=== PATIENT | female | born 1985 | race Caucasian/White ===

== ENCOUNTER 2020-10-07 18:55 | Emergency (ER) | payer MEDICAID ==
[~2020-10-07] VITALS: Ht 170.2 cm; Wt 84.1 kg
[2020-10-07 19:18] VITALS: BP 147/88
[2020-10-07] MEDS ORDERED: ondansetron 4mg rapidly disintigrating tab PO ONE (19:45)
[2020-10-07] MEDS ORDERED: ONDA4TAB6 PO (19:55)
--- NOTE | 2020-10-07 20:42 | NUR ---
Pt was able to tolerate 500ml of water. Pt denies nausea at this time. Pt denies pain at this time. Pt verbalized understanding of DC orders.
== END 2020-10-07 20:45 | disposition home or self-care (01) ==
LOC: ER 18:55
DX: F10.129 Alcohol abuse with intoxication, unspecified (principal); R11.2 Nausea with vomiting, unspecified; Y90.9 Presence of alcohol in blood, level not specified
CPT/HCPCS: 99283

== ENCOUNTER 2022-03-14 16:15 | Emergency (ER) | payer MEDICAID ==
[~2022-03-14] VITALS: Ht 170.2 cm; Wt 82.9 kg
[~2022-03-14 16:15] MED LIST: ONDA4TAB6 PO
[2022-03-14 16:17] VITALS: BP 142/72
== END 2022-03-14 17:39 | disposition home or self-care (01) ==
LOC: ER 16:16
DX: S92.534A Nondisplaced fracture of distal phalanx of right lesser toe(s), initial encounter for closed fracture (principal); J45.909 Unspecified asthma, uncomplicated; Z90.49 Acquired absence of other specified parts of digestive tract; F12.90 Cannabis use, unspecified, uncomplicated; Z79.899 Other long term (current) drug therapy; W22.8XXA Striking against or struck by other objects, initial encounter; Y93.89 Activity, other specified; Y92.89 Other specified places as the place of occurrence of the external cause; Y99.8 Other external cause status
CPT/HCPCS: 73660; 99283

== ENCOUNTER 2022-10-12 09:20 | Emergency (ER) | payer BC, MEDICAID ==
[~2022-10-12] VITALS: Ht 170.2 cm; Wt 75.0 kg
[2022-10-12 09:37] VITALS: BP 168/72
[2022-10-12] MEDS ORDERED: normal saline 1000ML IV soln IVB ONE (09:45)
[2022-10-12] MEDS ORDERED: ondansetron/PF 4mg/2ml inj IV ONE (09:45)
[2022-10-12] MEDS ORDERED: famotidine/PF 10 mg/ml inj IV ONE (09:45)
[2022-10-12 10:33] LABS: BASOPHILS % (AUTO) 0.4 % (0-1); EOSINOPHILS # (AUTO) 0.1 X10'3 (0-0.9); HEMATOCRIT 35.3 % (35.0-45.0); HEMOGLOBIN 11.5 g/dl (12.0-16.0); LYMPHOCYTES # (AUTO) 1.9 X10'3 (1.1-4.8); LYMPHOCYTES % (AUTO) 30.6 % (21-51); MEAN CORPUSCULAR HEMOGLOBIN 28.1 PG (27.0-31.0); MEAN CORPUSCULAR HGB CONC 32.6 g/dL (33.0-36.5); MONOCYTES # (AUTO) 0.4 X10'3 (0-0.9); NEUTROPHILS # (AUTO) 3.8 X10'3 (1.8-7.7); PLATELET COUNT 300 X10'3 (140-440); WHITE BLOOD COUNT 6.4 X10'3 (4.5-11.0)
[2022-10-12 10:41] LABS: ALANINE AMINOTRANSFERASE 26 U/L (12-78); ALBUMIN 3.9 G/DL (3.4-5.0); ALBUMIN/GLOBULIN RATIO 1.3 (1.1-1.5); ALKALINE PHOSPHATASE 51 IU/L (46-116); ANION GAP 9 (8-16); ASPARTATE AMINO TRANSFERASE 26 U/L (10-37); BILIRUBIN,TOTAL 0.4 MG/DL (0.1-1.0); BLOOD UREA NITROGEN 9 MG/DL (7-18); BUN/CREATININE RATIO 11.8 (6.6-38.0); CALCIUM 8.5 MG/DL (8.5-10.1); CHLORIDE 102 MMOL/L (99-107); CREATININE 0.76 MG/DL (0.40-0.90); GLUCOSE 90 MG/DL (70-104); LIPASE < 50 U/L (73-393); POTASSIUM 3.9 MMOL/L (3.5-5.1); SODIUM 139 MMOL/L (135-145); TOTAL CARBON DIOXIDE 28.5 MMOL/L (24-32); TOTAL PROTEIN 6.8 G/DL (6.4-8.2); eGFR 87 ML/MIN
[2022-10-12] MEDS ORDERED: ONDA4TAB12 PO (10:59)
[2022-10-12] MEDS ORDERED: sucralfate 1 gm tablet PO ONE (11:30)
[2022-10-12] MEDS ORDERED: LIDOcaine Viscous 15ml cup MM ONE (11:30)
[2022-10-12] MEDS ORDERED: mag hydrox/Alum hydrox/simeth 30ml oral suspension PO ONE (11:30)
--- NOTE | 2022-10-12 12:23 | NUR ---
I agree with Gosia AGUILAR's general assessment.
== END 2022-10-12 12:39 | disposition home or self-care (01) ==
LOC: ER 09:21
DX: R11.2 Nausea with vomiting, unspecified (principal); R19.7 Diarrhea, unspecified; R10.9 Unspecified abdominal pain; F12.10 Cannabis abuse, uncomplicated; J45.909 Unspecified asthma, uncomplicated; Z87.81 Personal history of (healed) traumatic fracture; Z90.49 Acquired absence of other specified parts of digestive tract
CPT/HCPCS: 36415; 80053; 83690; 85025; 96361; 96374; 96375; 99284; J2405; J3490; J7030

== ENCOUNTER 2022-12-29 13:53 | Emergency (ER) | payer BC, MEDICAID ==
[~2022-12-29] VITALS: Ht 170.2 cm; Wt 64.2 kg
[~2022-12-29 13:53] MED LIST changes: +ONDA4TAB12 PO
[2022-12-29 15:41] LABS: BASOPHILS % (AUTO) 0.4 % (0-1); EOSINOPHILS # (AUTO) 0.2 X10'3 (0-0.9); EOSINOPHILS % (AUTO) 2.4 % (0-6); HEMATOCRIT 32.3 % (35.0-45.0); HEMOGLOBIN 10.6 g/dl (12.0-16.0); LYMPHOCYTES # (AUTO) 1.4 X10'3 (1.1-4.8); LYMPHOCYTES % (AUTO) 21.3 % (21-51); MEAN CORPUSCULAR HEMOGLOBIN 28.7 PG (27.0-31.0); MEAN CORPUSCULAR HGB CONC 32.7 g/dL (33.0-36.5); MEAN CORPUSCULAR VOLUME 87.9 FL (78-98); MEAN PLATELET VOLUME 8.1 FL (7.4-10.4); MONOCYTES # (AUTO) 0.5 X10'3 (0-0.9); MONOCYTES % (AUTO) 7.6 % (2-12); NEUTROPHILS # (AUTO) 4.5 X10'3 (1.8-7.7); NEUTROPHILS % (AUTO) 68.3 % (42-75); PLATELET COUNT 256 X10'3 (140-440); RED BLOOD COUNT 3.68 X10'6 (4.20-5.60); WHITE BLOOD COUNT 6.5 X10'3 (4.5-11.0)
[2022-12-29 15:49] LABS: APTT 25 SECONDS (22-32)
[2022-12-29 15:50] LABS: ALANINE AMINOTRANSFERASE 19 U/L (12-78); ALBUMIN 3.7 G/DL (3.4-5.0); ALBUMIN/GLOBULIN RATIO 1.4 (1.1-1.5); ALKALINE PHOSPHATASE 43 IU/L (46-116); ANION GAP 7 (8-16); ASPARTATE AMINO TRANSFERASE 14 U/L (10-37); BILIRUBIN,TOTAL 0.2 MG/DL (0.1-1.0); BLOOD UREA NITROGEN 8 MG/DL (7-18); BUN/CREATININE RATIO 11.9 (10.0-20.0); CALCIUM 8.9 MG/DL (8.5-10.1); CHLORIDE 106 MMOL/L (99-107); CREATININE 0.67 MG/DL (0.40-0.90); GLUCOSE 80 MG/DL (70-104); SODIUM 139 MMOL/L (135-145); TOTAL CARBON DIOXIDE 26.1 MMOL/L (24-32); TOTAL PROTEIN 6.3 G/DL (6.4-8.2); eGFR > 90 ML/MIN
[2022-12-29 16:13] LABS: LIPASE 85 U/L (73-393); MAGNESIUM 2.1 MG/DL (1.5-2.4)
[2022-12-29 16:15] LABS: BETA HCG,QUANTITATIVE 2285 mIU/ml
[2022-12-29 20:01] LABS: URINE HCG POSITIVE (NEG)
[2022-12-29 20:02] LABS: CLARITY,URINE CLOUDY (Clear); COLOR,URINE AMBER (Yellow); GLUCOSE, URINE 100 mg/dl (Neg); KETONES,URINE 15 mg/dl (Neg); LEUKOCYTE ESTERASE ,URINE NEGATIVE (Neg); OCCULT BLOOD,URINE LARGE (Neg); PROTEIN,URINE 100 mg/dl (Neg); UROBILINOGEN,URINE 0.2 E.U/dL (0.2-1.0)
[2022-12-29 20:06] LABS: UA COLLECTION TYPE CLN CATCH MIDSTREAM
[2022-12-29 20:11] LABS: NITRITES, URINE NEGATIVE (Neg)
[2022-12-29 20:12] LABS: RBC,URINE TNTC /HPF (0-2)
[2022-12-29 20:14] LABS: SQUAMOUS EPITHELIAL CELL,UR MANY /LPF (FEW); WBC,URINE 50-100 /HPF (0-4)
[2022-12-29 20:15] LABS: BACTERIA,URINE 1+ /HPF (Neg); MUCUS STRANDS FEW /LPF (Neg); TRANSITIONAL EPI CELLS,URINE MANY /HPF
--- NOTE | 2022-12-29 20:40 | NUR ---
US at bedside
[2022-12-29] MEDS ORDERED: acetaminophen 325mg tablet PO ONE (21:30)
[2022-12-29 22:14] VITALS: BP 130/70
== END 2022-12-29 22:13 | disposition home or self-care (01) ==
LOC: ER 13:54
DX: O20.9 Hemorrhage in early pregnancy, unspecified (principal); O99.011 Anemia complicating pregnancy, first trimester; J45.909 Unspecified asthma, uncomplicated; F12.90 Cannabis use, unspecified, uncomplicated; Z3A.08 8 weeks gestation of pregnancy; Z72.89 Other problems related to lifestyle; Z90.49 Acquired absence of other specified parts of digestive tract; Z79.899 Other long term (current) drug therapy
CPT/HCPCS: 36415; 76801; 76830; 80053; 81001; 81025; 83690; 83735; 84702; 85025; 85610; 85730; 86870; 86880; 86885; 86900; 86901; 99284

== ENCOUNTER 2023-03-21 11:07 | Emergency (ER) | payer BC, MEDICAID ==
[~2023-03-21] VITALS: Ht 170.2 cm; Wt 71.8 kg
[2023-03-21] MEDS ORDERED: ipratropium/albuterol 3ml nebule NEB ONE (11:25)
[2023-03-21] MEDS ORDERED: normal saline 1000ML IV soln IVB ONE (11:25)
[2023-03-21] MEDS ORDERED: methylPREDNISolone sod succ 125mg/2ml vial IV ONE (11:30)
--- NOTE | 2023-03-21 12:44 | NUR ---
PT AMBULATED TO ROOM 15 FROM ROOM 17 WITH INCREASED SOB. 02 2L/MIN NC APPLIED FOR SOB AND RR 26
[2023-03-21] MEDS ORDERED: albuterol 2.5 MG/3 ML nebule NEB ONE (13:30)
[2023-03-21 14:17] LABS: D-DIMER < 0.19 MG/L FEU (0-0.50)
--- NOTE | 2023-03-21 14:17 | NUR ---
LUNGS DIM LEFT UPPER LOBE. 02 SAT 96% O 2L/MIN NC. RT AT BEDSIDE.
[2023-03-21 14:19] LABS: ALANINE AMINOTRANSFERASE 27 U/L (12-78); ALBUMIN/GLOBULIN RATIO 1.4 (1.1-1.5); ALKALINE PHOSPHATASE 49 IU/L (46-116); ANION GAP 11 (8-16); ASPARTATE AMINO TRANSFERASE 20 U/L (10-37); BILIRUBIN,TOTAL 0.6 MG/DL (0.1-1.0); BLOOD UREA NITROGEN 8 MG/DL (7-18); BUN/CREATININE RATIO 10.5 (10.0-20.0); CALCIUM 9.1 MG/DL (8.5-10.1); CHLORIDE 102 MMOL/L (99-107); CREATININE 0.76 MG/DL (0.40-0.90); GLUCOSE 94 MG/DL (70-104); POTASSIUM 3.9 MMOL/L (3.5-5.1); SODIUM 136 MMOL/L (135-145); TOTAL CARBON DIOXIDE 23.1 MMOL/L (24-32); TOTAL PROTEIN 6.9 G/DL (6.4-8.2); eGFR 86 ML/MIN
[2023-03-21 14:52] LABS: BASOPHILS % (AUTO) 0.3 % (0-1); EOSINOPHILS # (AUTO) 0.3 X10'3 (0-0.9); EOSINOPHILS % (AUTO) 4.9 % (0-6); HEMATOCRIT 38.5 % (35.0-45.0); HEMOGLOBIN 12.8 g/dl (12.0-16.0); LYMPHOCYTES # (AUTO) 1.3 X10'3 (1.1-4.8); LYMPHOCYTES % (AUTO) 18.6 % (21-51); MEAN CORPUSCULAR HEMOGLOBIN 30.9 PG (27.0-31.0); MEAN CORPUSCULAR HGB CONC 33.2 g/dL (33.0-36.5); MEAN CORPUSCULAR VOLUME 93.1 FL (78-98); MONOCYTES # (AUTO) 0.6 X10'3 (0-0.9); MONOCYTES % (AUTO) 8.2 % (2-12); NEUTROPHILS # (AUTO) 4.7 X10'3 (1.8-7.7); PLATELET COUNT 238 X10'3 (140-440); RED BLOOD COUNT 4.14 X10'6 (4.20-5.60); RED CELL DISTRIBUTION WIDTH 14.5 % (11.5-14.5); WHITE BLOOD COUNT 6.9 X10'3 (4.5-11.0)
[2023-03-21] MEDS ORDERED: normal saline 1000ml 1,000 ML IV ONE (15:40)
[2023-03-21] MEDS ORDERED: PRED20TA PO (15:49)
[2023-03-21] MEDS ORDERED: ALBU8HFA PO (15:49)
[2023-03-21] MEDS ORDERED: AZIT-164 PO (15:49)
[2023-03-21 16:43] VITALS: BP 134/81
[2023-03-21] MEDS ORDERED: azithromycin 250mg tablet PO ONE (17:00)
[2023-03-21] MEDS ORDERED: predniSONE 20 mg tablet PO ONE (17:00)
--- NOTE | 2023-03-21 17:00 | NUR ---
PT AMBULATED IN HALLWAY, TOLERATED WELL. 02 SATS 95% ON RA, WITH SLIGHT SOB.
== END 2023-03-21 17:29 | disposition home or self-care (01) ==
LOC: ER 11:08
DX: J45.901 Unspecified asthma with (acute) exacerbation (principal)
CPT/HCPCS: 36415; 71045; 80053; 84702; 85025; 85379; 93005; 96361; 96374; 99285; J2930; J7030; J7512; 94640; 94760; A4615

== ENCOUNTER 2023-04-07 11:22 | Emergency (ER) | payer MEDICAID ==
[~2023-04-07] VITALS: Ht 170.2 cm; Wt 80.0 kg
[~2023-04-07 11:22] MED LIST changes: +ALBU8HFA PO; +AZIT-164 PO
[2023-04-07 13:28] VITALS: BP 117/62
[2023-04-07 15:23] LABS: BASOPHILS % (AUTO) 0.5 % (0-1); EOSINOPHILS # (AUTO) 0.2 X10'3 (0-0.9); EOSINOPHILS % (AUTO) 2.3 % (0-6); HEMATOCRIT 33.2 % (35.0-45.0); HEMOGLOBIN 11.2 g/dl (12.0-16.0); LYMPHOCYTES # (AUTO) 1.7 X10'3 (1.1-4.8); LYMPHOCYTES % (AUTO) 26.3 % (21-51); MEAN CORPUSCULAR HEMOGLOBIN 31.2 PG (27.0-31.0); MEAN CORPUSCULAR HGB CONC 33.8 g/dL (33.0-36.5); MEAN CORPUSCULAR VOLUME 92.3 FL (78-98); MEAN PLATELET VOLUME 8.3 FL (7.4-10.4); MONOCYTES # (AUTO) 0.5 X10'3 (0-0.9); MONOCYTES % (AUTO) 6.9 % (2-12); NEUTROPHILS # (AUTO) 4.2 X10'3 (1.8-7.7); PLATELET COUNT 215 X10'3 (140-440); RED CELL DISTRIBUTION WIDTH 13.6 % (11.5-14.5); WHITE BLOOD COUNT 6.6 X10'3 (4.5-11.0)
[2023-04-07] MEDS ORDERED: acetaminophen 325mg tablet PO ONE (15:35)
[2023-04-07] MEDS ORDERED: traMADol 50MG tablet PO ONE (15:35)
[2023-04-07] MEDS ORDERED: ondansetron 4mg rapidly disintigrating tab PO ONE (15:35)
[2023-04-07 15:44] LABS: ALANINE AMINOTRANSFERASE 21 U/L (12-78); ALBUMIN 3.5 G/DL (3.4-5.0); ALBUMIN/GLOBULIN RATIO 1.5 (1.1-1.5); ALKALINE PHOSPHATASE 36 IU/L (46-116); ANION GAP 8 (8-16); ASPARTATE AMINO TRANSFERASE 14 U/L (10-37); BILIRUBIN,TOTAL 0.4 MG/DL (0.1-1.0); BLOOD UREA NITROGEN 5 MG/DL (7-18); BUN/CREATININE RATIO 7.6 (10.0-20.0); CALCIUM 8.7 MG/DL (8.5-10.1); CHLORIDE 104 MMOL/L (99-107); CREATININE 0.66 MG/DL (0.40-0.90); GLUCOSE 84 MG/DL (70-104); POTASSIUM 3.6 MMOL/L (3.5-5.1); SODIUM 135 MMOL/L (135-145); TOTAL CARBON DIOXIDE 22.6 MMOL/L (24-32); TOTAL PROTEIN 5.9 G/DL (6.4-8.2); eGFR > 90 ML/MIN
[2023-04-07 16:21] LABS: BETA HCG,QUANTITATIVE 54588 mIU/ml
== END 2023-04-07 15:52 | disposition home or self-care (01) ==
LOC: ER 11:22
DX: O26.893 Other specified pregnancy related conditions, third trimester (principal); O46.8X3 Other antepartum hemorrhage, third trimester; Z33.1 Pregnant state, incidental; Z3A.36 36 weeks gestation of pregnancy
CPT/HCPCS: 36415; 76801; 76817; 80053; 84702; 85025; 99284

== ENCOUNTER 2023-05-04 09:18 | Emergency (ER) | payer MEDICAID ==
[~2023-05-04] VITALS: Ht 170.2 cm; Wt 74.1 kg
[~2023-05-04 09:18] MED LIST changes: -ALBU8HFA PO; -AZIT-164 PO
[2023-05-04 09:24] VITALS: TEMP 98.5
[2023-05-04 09:48] LABS: BASOPHILS % (AUTO) 0.5 % (0-1); EOSINOPHILS # (AUTO) 0.1 X10'3 (0-0.9); EOSINOPHILS % (AUTO) 1.3 % (0-6); HEMATOCRIT 35.6 % (35.0-45.0); HEMOGLOBIN 11.9 g/dl (12.0-16.0); LYMPHOCYTES # (AUTO) 1.1 X10'3 (1.1-4.8); LYMPHOCYTES % (AUTO) 16.4 % (21-51); MEAN CORPUSCULAR HEMOGLOBIN 31.3 PG (27.0-31.0); MEAN CORPUSCULAR HGB CONC 33.4 g/dL (33.0-36.5); MEAN CORPUSCULAR VOLUME 93.7 FL (78-98); MEAN PLATELET VOLUME 8.2 FL (7.4-10.4); MONOCYTES # (AUTO) 0.4 X10'3 (0-0.9); MONOCYTES % (AUTO) 6.3 % (2-12); NEUTROPHILS # (AUTO) 5.2 X10'3 (1.8-7.7); NEUTROPHILS % (AUTO) 75.5 % (42-75); PLATELET COUNT 238 X10'3 (140-440); RED CELL DISTRIBUTION WIDTH 13.2 % (11.5-14.5); WHITE BLOOD COUNT 6.8 X10'3 (4.5-11.0)
[2023-05-04 10:00] LABS: ALANINE AMINOTRANSFERASE 41 U/L (12-78); ALBUMIN 3.5 G/DL (3.4-5.0); ALBUMIN/GLOBULIN RATIO 1.1 (1.1-1.5); ALKALINE PHOSPHATASE 38 IU/L (46-116); ANION GAP 13 (8-16); ASPARTATE AMINO TRANSFERASE 22 U/L (10-37); BILIRUBIN,TOTAL 0.4 MG/DL (0.1-1.0); BLOOD UREA NITROGEN 6 MG/DL (7-18); BUN/CREATININE RATIO 9.5 (10.0-20.0); CALCIUM 8.9 MG/DL (8.5-10.1); CHLORIDE 105 MMOL/L (99-107); CREATININE 0.63 MG/DL (0.40-0.90); GLUCOSE 88 MG/DL (70-104); LIPASE 60 U/L (73-393); POTASSIUM 4.1 MMOL/L (3.5-5.1); SODIUM 139 MMOL/L (135-145); TOTAL CARBON DIOXIDE 21.4 MMOL/L (24-32); TOTAL PROTEIN 6.6 G/DL (6.4-8.2); eGFR > 90 ML/MIN
[2023-05-04] MEDS ORDERED: normal saline 1000ml 1,000 ML IV ONE (10:05)
[2023-05-04 10:30] LABS: URINE HCG POSITIVE (NEG)
[2023-05-04 10:35] LABS: CLARITY,URINE SLIGHTLY CLOUDY (Clear); COLOR,URINE YELLOW (Yellow); GLUCOSE, URINE NEGATIVE (Neg); KETONES,URINE NEGATIVE (Neg); LEUKOCYTE ESTERASE ,URINE NEGATIVE (Neg); NITRITES, URINE NEGATIVE (Neg); OCCULT BLOOD,URINE NEGATIVE (Neg); PROTEIN,URINE NEGATIVE (Neg); UROBILINOGEN,URINE 0.2 E.U/dL (0.2-1.0)
[2023-05-04 10:38] LABS: UA COLLECTION TYPE CLN CATCH MIDSTREAM
[2023-05-04 10:49] LABS: HYALINE CASTS 0-3 /LPF (NEGATIVE); MUCUS STRANDS MANY /LPF (Neg); SQUAMOUS EPITHELIAL CELL,UR MODERATE /LPF (FEW)
[2023-05-04 10:51] LABS: BACTERIA,URINE FEW /HPF (Neg); RBC,URINE 0-2 /HPF (0-2); WBC,URINE 0-4 /HPF (0-4)
[2023-05-04 11:34] VITALS: BP 124/74; PULSE 63; RESP 14; O2SAT 100
[2023-05-04 13:57] LABS: MAGNESIUM 1.9 MG/DL (1.5-2.4)
== END 2023-05-04 11:34 | disposition home or self-care (01) ==
LOC: ER 09:18
DX: O26.891 Other specified pregnancy related conditions, first trimester (principal); R55 Syncope and collapse; R42 Dizziness and giddiness; J45.909 Unspecified asthma, uncomplicated; Z90.49 Acquired absence of other specified parts of digestive tract; Z79.899 Other long term (current) drug therapy; Z3A.13 13 weeks gestation of pregnancy
CPT/HCPCS: 36415; 80053; 81001; 81025; 83690; 83735; 85025; 93005; 96360; 99284; J7030

== ENCOUNTER 2023-11-14 07:07 | Emergency (ER) | payer MEDICAID ==
[~2023-11-14] VITALS: Ht 170.2 cm; Wt 90.9 kg
[2023-11-14] MEDS ORDERED: labetalol 100mg tablet PO SCH (07:40)
[2023-11-14] MEDS ORDERED: acetaminophen 325mg tablet PO ONE (07:40)
[2023-11-14] MEDS ORDERED: ondansetron 4mg rapidly disintigrating tab PO ONE (07:40)
[2023-11-14 08:30] LABS: BASOPHILS % (AUTO) 0.8 % (0-1); EOSINOPHILS # (AUTO) 0.3 X10'3 (0-0.9); EOSINOPHILS % (AUTO) 4.6 % (0-6); HEMATOCRIT 33.3 % (35.0-45.0); HEMOGLOBIN 11.3 g/dl (12.0-16.0); LYMPHOCYTES # (AUTO) 1.5 X10'3 (1.1-4.8); LYMPHOCYTES % (AUTO) 23.7 % (21-51); MEAN CORPUSCULAR HEMOGLOBIN 32.3 PG (27.0-31.0); MEAN CORPUSCULAR VOLUME 95.2 FL (78-98); MEAN PLATELET VOLUME 7.4 FL (7.4-10.4); MONOCYTES # (AUTO) 0.4 X10'3 (0-0.9); MONOCYTES % (AUTO) 6.9 % (2-12); PLATELET COUNT 282 X10'3 (140-440); RED CELL DISTRIBUTION WIDTH 14.4 % (11.5-14.5); WHITE BLOOD COUNT 6.3 X10'3 (4.5-11.0)
[2023-11-14 09:03] LABS: ALANINE AMINOTRANSFERASE 37 U/L (12-78); ALBUMIN 2.8 G/DL (3.4-5.0); ALBUMIN/GLOBULIN RATIO 0.9 (1.1-1.5); ALKALINE PHOSPHATASE 76 IU/L (46-116); ANION GAP 6 (8-16); ASPARTATE AMINO TRANSFERASE 18 U/L (10-37); BILIRUBIN,TOTAL 0.4 MG/DL (0.1-1.0); BLOOD UREA NITROGEN 12 MG/DL (7-18); BUN/CREATININE RATIO 14.3 (10.0-20.0); CALCIUM 8.3 MG/DL (8.5-10.1); CHLORIDE 106 MMOL/L (99-107); CREATININE 0.84 MG/DL (0.40-0.90); GLUCOSE 85 MG/DL (70-104); POTASSIUM 4.4 MMOL/L (3.5-5.1); SODIUM 138 MMOL/L (135-145); TOTAL CARBON DIOXIDE 25.7 MMOL/L (24-32); TOTAL PROTEIN 5.9 G/DL (6.4-8.2); eCRCL 90 ML/MIN; eGFR 77 ML/MIN
[2023-11-14 09:19] LABS: BILIRUBIN,URINE NEGATIVE (Neg); CLARITY,URINE CLEAR (Clear); COLOR,URINE YELLOW (Yellow); GLUCOSE, URINE NEGATIVE (Neg); KETONES,URINE NEGATIVE (Neg); LEUKOCYTE ESTERASE ,URINE TRACE (Neg); NITRITES, URINE NEGATIVE (Neg); OCCULT BLOOD,URINE NEGATIVE (Neg); PROTEIN,URINE NEGATIVE (Neg); UROBILINOGEN,URINE 0.2 E.U/dL (0.2-1.0)
[2023-11-14 09:22] LABS: UA COLLECTION TYPE CLN CATCH MIDSTREAM
[2023-11-14 09:26] LABS: BACTERIA,URINE NONE SEEN /HPF (Neg); MUCUS STRANDS NONE SEEN /LPF (Neg); RBC,URINE NONE SEEN /HPF (0-2); SQUAMOUS EPITHELIAL CELL,UR FEW /LPF (FEW); WBC,URINE 0-4 /HPF (0-4)
[2023-11-14 09:34] VITALS: BP 136/75; PULSE 69; RESP 18; TEMP 97.6; O2SAT 96
== END 2023-11-14 09:55 | disposition home or self-care (01) ==
LOC: ER 07:07
DX: I10 Essential (primary) hypertension (principal); R51.9 Headache, unspecified; H51.9 Unspecified disorder of binocular movement; J45.909 Unspecified asthma, uncomplicated; Z79.899 Other long term (current) drug therapy
CPT/HCPCS: 36415; 80053; 81001; 85025; 87088; 99285

== ENCOUNTER 2025-07-17 13:28 | Inpatient (IN) | payer MEDICAID ==
[~2025-07-17] VITALS: Ht 165.1 cm; Wt 70.5 kg
[~2025-07-17 13:28] MED LIST changes: +ONDA-243 PO; -ONDA4TAB12 PO
[2025-07-17 14:10] LABS: MEAN PLATELET VOLUME 7.9 FL (7.4-10.4); RED CELL DISTRIBUTION WIDTH 16.4 % (11.5-14.5)
--- NOTE | 2025-07-17 14:33 | RADIOLOGY REPORT ---
CHEST RADIOGRAPH Indication: CP Technique: Single frontal view of the chest was obtained Comparison: CHEST,SINGLE VIEW on DOS: 03/21/23 FINDINGS: Lines and Tubes: None Lungs: No focal consolidation. Pleura: No effusion. No pneumothorax. Cardiomediastinal contours: Unremarkable Bones: No acute osseous abnormality. IMPRESSION: No acute cardiopulmonary disease.
[2025-07-17 14:34] LABS: CREATININE 0.80 MG/DL (0.40-0.90); PRO BRAIN NATRIURETIC PEPTIDE 91 PG/ML (0-125); TOTAL CARBON DIOXIDE 29.3 MMOL/L (24-32); eCRCL 93 ML/MIN; eGFR 80 ML/MIN
--- NOTE | 2025-07-17 16:27 | ELECTROCARDIOGRAPH REPORT ---
[facility] Test Date: 2025-07-17 Test Time: 13:58:35 Pat Name: SUMA MCKEON Department: [facility]-ER Patient ID: [facility]-[id number] Room: Gender: F Ruffler: : 1985 Requested By: DENNIS YIP Order Number: [id number] Reading MD: Measurements Intervals [place] Rate: 61 P: 72 DE: 149 QRS: 77 QRSD: 99 T: 45 QT: 414 QTc: 417 Interpretive Statements Sinus rhythm Please click the below link to view image of tracing.
--- NOTE | 2025-07-17 18:30 | Physician Documentation ---
History of Present Illness ~ Chief Complaint: Syncope Stated Complaint: SYNCOPE Time Seen by MD: 18:28 Primary Medical Doctor: n/a Mode of Arrival: POV HPI Patient presents to the emergency room for evaluation after syncopal episode. She was at the park with her daughter playing running around with her in the next thing she knows she turned and passed out for unknown amount of time. Bystanders saw that the child was standing over her mother in a basketball court who this was unusual stopped the car and came to help. She denies history of seizures. No bladder or bowel incontinence. She does endorse mild posterior head pain. She denies any palpitations or chest pain. She denies one-sided leg pain. Medication Reconciliation Allergies: Coded Allergies: No Known Allergies (Unverified , 11/14/23) Scheduled Ondansetron Hcl (Zofran), 1 TAB PO Q6H Scheduled PRN ONDANSETRON ODT 4mg tablet (Ondansetron Odt), 1 TABLET PO Q6H PRN for resp rate < 8/min or SBP < 90 Past Medical History Past Medical History: Asthma, Extremity Fracture Past Surgical History: cholecystectomy Alcohol Use: None Drug Use: none Lives In: Home Occupation: employed Review of Systems ROS All review of systems negative except as per HPI Physical Exam Vital Signs: Temperature: 98.4, Source: Temporal, Heart Rate: 63, Respiratory Rate: 17, BP: 128/84, Pulse Oximetry: 99, Weight: 70.450 Oxygen Flow Rate: 0 Physical Exam General: Patient is awake, alert, oriented x4 in no acute distress Head: Normocephalic and atraumatic. Eyes: Conjunctival normal. EOMI. PERRL. ENT: Mucous membranes moist. No hardy signs or raccoon eyes Neck: Supple, trachea is midline. No cervical midline tenderness Chest: Clear to auscultation bilaterally without rales, rhonchi, or wheezes. There is no accessory muscle use or retractions. Cardiac: RRR without murmurs, gallops, or rubs. Abd: Soft, nondistended, nontender, with normoactive bowel sounds. No guarding, rebound, or rigidity. Extremities: Normal strength. Normal range of motion. No deformities or edema. No calf tenderness to palpation Progress Results/Orders Results/Orders Orders - CARLOS A KEE MD D-Dimer (07/17/25 18:37) Ct Head (07/17/25 19:15) Page Hospitalist (07/17/25 19:35) Fill Out Med Reconciliation (07/17/25 19:35) Completed Orders - CARLOS A KEE MD Ct Head (07/17/25 19:15) Hcg Serum Ql (07/17/25 18:51) Vital Signs 07/17/25 07/17/25 07/17/25 07/17/25 13:47 16:04 16:10 17:05 Temp 98.4 Pulse 77 70 61 Resp 16 18 15 B/P (MAP) 154/98 163/100 (121) 143/74 (97) Pulse Ox 98 100 100 O2 Flow Rate 0 0 0 07/17/25 17:40 Pulse 63 Resp 17 B/P (MAP) 128/84 (99) Pulse Ox 99 O2 Flow Rate 0 Laboratory Tests Test 07/17/25 14:03 07/17/25 16:05 07/17/25 17:20 07/17/25 19:29 White Blood Count 7.5 Red Blood Count 4.15 L Hemoglobin 11.4 L Hematocrit 35.0 Mean Corpuscular Volume 84.2 Mean Corpuscular Hemoglobin 27.6 Mean Corpuscular Hemoglobin Concent 32.8 L Red Cell Distribution Width 16.4 H Platelet Count 298 Mean Platelet Volume 7.9 Neutrophils (%) (Auto) 58.9 Lymphocytes (%) (Auto) 32.3 Monocytes (%) (Auto) 5.7 Eosinophils (%) (Auto) 2.6 Basophils (%) (Auto) 0.5 Neutrophils # (Auto) 4.4 Lymphocytes # (Auto) 2.4 Monocytes # (Auto) 0.4 Eosinophils # (Auto) 0.2 Basophils # (Auto) 0.0 CBC Comment Sodium Level 140 Potassium Level 3.4 L Chloride Level 103 Carbon Dioxide Level 29.3 Anion Gap 8 Blood Urea Nitrogen 11 Creatinine 0.80 Estimated GFR/1.73 m2 80 BUN/Creatinine Ratio 13.8 Glucose Level 102 Calcium Level 8.4 L Troponin I High Sensitivity 4 4 4 Pro-B-Type Natriuretic Peptide 91 Albumin 3.6 Human Chorionic Gonadotropin, Qual Negative Chemistry Comments Troponin I High Sens Percent Delta 0 0 Troponin I Hi Sens Absolute Change 0 0 D-Dimer Comment EKG/XRAY/CT/US/VASC/MRI EKG : Additional Comment EKG interpreted by myself shows time of 1358, rate 61, sinus rhythm, normal axis, no ST changes Chest X-Ray : Additional Comments Exam: CHEST,SINGLE VIEW CHEST RADIOGRAPH Indication: CP Technique: Single frontal view of the chest was obtained Comparison: CHEST,SINGLE VIEW on DOS: 03/21/23 FINDINGS: Lines and Tubes: None Lungs: No focal consolidation. Pleura: No effusion. No pneumothorax. Cardiomediastinal contours: Unremarkable Bones: No acute osseous abnormality. IMPRESSION: No acute cardiopulmonary disease. Medical Decision Making Findings Patient presents to the emergency room after syncopal episode as per HPI. Differentials include but are not limited to vasovagal, cardiac arrhythmia, pulmonary embolism, dehydration, intracranial bleed therefore emergent labs and imaging indicated. Of concern that has patient was active during her syncopal episode and could represent stress induced syncope. Troponins reassuring as his EKG. Concern for possible cardiogenic syncope. We will admit for further investigation Departure Admitted to Inpatient Unit: yes, to hospitalist Impression: Primary Impression: Possible cardiogenic syncope Condition: Guarded Referrals: NO PRIMARY CARE PROVIDER (PCP) Signature Scribe Signature: No scribe Attestation: The note accurately reflects work and decisions made by me.Carlos A Kee MD 07/17/25 19:46 CARLOS A KEE MD Jul 17, 2025 18:30
[2025-07-17 19:09] LABS: HCG SERUM QL NEGATIVE
--- NOTE | 2025-07-17 19:30 | RADIOLOGY REPORT ---
CLINICAL HISTORY: fall TECHNIQUE: Helical scanning was performed of the head from the skull base to the vertex. Multiplanar reconstructions were performed. This exam was performed according to our departmental dose optimization program. Up-to-date CT equipment and radiation dose reduction techniques are utilized as appropriate. CTDI 60 DLP 1043 COMPARISON: None FINDINGS: There is no evidence for acute intracranial hemorrhage, acute ischemic changes, mass, mass effect, or extra-axial fluid collection. There is no hydrocephalus or midline shift. There is no effacement of the cerebral sulci and basal subarachnoid cisterns. The rojas-white matter differentiation is well maintained. The imaged paranasal sinuses are clear. IMPRESSION: NO ACUTE INTRACRANIAL ABNORMALITY SEEN.
[2025-07-17] MEDS ORDERED: potassium Cl 20 mEq SR tablet PO PRN ×2 (20:10)
[2025-07-17] MEDS ORDERED: magnesium Cl slow-release 64mg tablet PO PRN (20:10)
[2025-07-17] MEDS ORDERED: PERFLUTREN PROTEIN-A MICROSPHR (Optison) 0.22 MG/ML 3ML VIAL IV ONE (20:10)
[2025-07-17] MEDS ORDERED: mag hydrox/Alum hydrox/simeth 30ml oral suspension PO PRN (20:10)
[2025-07-17] MEDS ORDERED: magnesium sulf-water 2g/50mL 50 ML IV PRN (20:10)
[2025-07-17] MEDS ORDERED: ondansetron/PF 4mg/2ml inj IV PRN (20:10)
[2025-07-17] MEDS ORDERED: normal saline 1000ml 1,000 ML IV SCH (20:10)
[2025-07-17] MEDS ORDERED: potassium Cl 40MEQ/1/2NS 520ml 520 ML IV PRN (20:10)
[2025-07-17] MEDS ORDERED: magnesium sulf-water 4G/100mL 100 ML IV PRN (20:10)
[2025-07-17] MEDS ORDERED: magnesium hydroxide 30ml (MOM) UD suspension PO PRN (20:10)
[2025-07-17] MEDS ORDERED: metoclopramide 5 mg/ml inj IV PRN (20:10)
[2025-07-17] MEDS ORDERED: morphine 4 MG/ML inj SYRINge IV PRN ×2 (20:26→20:27)
--- NOTE | 2025-07-17 21:05 | HISTORY AND PHYSICAL-Residence ---
History & Physical Providers to CC Resident Creating Document: DEVANG GARCIA RES ~ History of Present Illness Primary Medical Doctor: n/a Reason for Admit\Complaint: Syncope History of Present Illness This is a 40-year-old male patient with a past medical history of asthma who presented for a syncopal episode at 11:00 a.m. today preceded by blurred vision and dizziness. She estimates loss of consciousness for about 5 minutes but is unsure. She was shaky, nauseated and sweating after she recovered consciousness, denies head trauma, headache, vomiting or any other neurological symptoms. She also denies chest pain, palpitation fever or productive cough. She complains of occasional shortness for breath that is resolved after albuterol, she was recently treated with a prednisone. No other symptoms reported. Allergies: Coded Allergies: No Known Allergies (Unverified , 11/14/23) Home Medications Home Medications Active Ondansetron Odt (Ondansetron HCl) 4 Mg Tab.rapdis 1 Tablet PO Q6H PRN Zofran (Ondansetron Hcl) 4 Mg Tablet 1 Tab PO Q6H 5 Days Past Medical History Past Medical History Asthma Iron deficiency anemia Past Surgical History Surgical History Comment Cholecystectomy Past Social History Smoking: Non-Smoker Alcohol Use: None Drug Use: None Lives with: Family Lives In: Home Occupation: employed ROS Constitutional: Reports: weakness Eyes: Reports: blurred vision ENT: Reports: no symptoms reported Respiratory: Reports: cough, shortness of breath Cardiovascular: Reports: no symptoms reported Gastrointestinal: Reports: nausea Genitourinary: Reports: no symptoms reported Female Genitalia: Reports: no reported symptoms Neurological: Reports: dizziness, fainting Musculoskeletal: Reports: no symptoms reported Integumentary: Reports: no symptoms reported Allergic/Immunologic: Reports: no symptoms reported Hematologic/Lymphatic: Reports: no symptoms reported Endocrine: Reports: no symptoms reported Psychiatric: Reports: no symptoms reported Exam Vitals: Vital Signs Date Time Temp Pulse Resp B/P (MAP) Pulse Ox O2 Delivery O2 Flow Rate FiO2 07/17/25 17:40 63 17 128/84 (99) 99 0 07/17/25 13:47 98.4 General: General: Awake and Alert, no acute distress. HEENT: Conjunctiva pink, Sclera clear, Mucus Membranes moist. Neck: Supple without masses and tenderness. Resp: Unlabored. Lungs clear to auscultation bilaterally. Heart: Regular Rate and rhythm, normal S1 and S2 without murmur, rub or gallop. Abdomen: Soft and non tender no organomegaly Extremities: No cyanosis,clubbing or edema. Skin: Warm and Dry. Neuro: Awake, alert, oriented, speech is normal Cranial nerve exam-normal visual field, normal extraocular movements, normal facial sensations and facial movements, normal hearing, uvula in midline, tongue protrusion and shoulder shrugging normal Strength-normal tone, bilateral upper and lower extremity 5/5, deep tendon reflexes-2, absent Babinski Cerebellar-normal finger-nose test Diagnostic Data Last Recorded Lab Results: 07/17/25 1403 07/17/25 1403 Diagnostic Data: Laboratory Tests Test 07/17/25 19:29 D-Dimer < 0.19 MG/L FEU (0-0.50) D-Dimer Comment Advance Care Planning Advanced Care plannin - 30 Minutes (Advanced care directives were discussed. Patient requests full code status.) Additional Plan Assessment 40-year-old male patient who presents after a syncopal episode. She was admitted for further evaluation and management. 1. Syncope, possibly vasovagal Symptoms preceded by blurred vision and dizziness Patient estimates 5 minutes loss of consciousness but timing is unclear She was shaky, nauseated and sweating after she recovered consciousness No head trauma, no other neurological symptoms EKG: Sinus rhythm, no ischemic signs Head CT: No acute intracranial abnormality seen Lab work is unremarkable Plan Ordered orthostatic vital signs Ordered carotid ultrasound and echocardiogram Hydration with normal saline Continuous telemetry 2. Asthma, well controlled, not on acute exacerbation CXR: No acute cardiopulmonary disease. Continue Advair and albuterol as needed. Code Status: Full code DVT prophylaxis: Lovenox Analgesia/sedation: Morphine/Tylenol Line/tube: PIV GI prophylaxis: None Nutrition: Regular diet Prognosis: Guarded Physical therapy: Not necessary Disposition: Admit to neuro floor with telemetry. after admission patient decided to leave AMA. She understands the risk of her decision in left after signing the AMA form Date of Service: Jul 17, 2025 Billing Provider: JANET CUEVA MD Addendum 40 year old female admitted with syncope The patient left against medical advice prior to the completion of her management CCT 47 min using HIPPA compliant A/V technology DEVANG GARCIA, RES Jul 17, 2025 21:05 JANET CUEVA MD Jul 18, 2025 21:17
[2025-07-17 22:48] VITALS: BP 161/79; PULSE 99; RESP 16; TEMP 98.4; O2SAT 98
--- NOTE | 2025-07-18 04:26 | DISCHARGE SUMMARY-Residence ---
Discharge Summary Providers to CC Resident Creating Document: DEVANG GARCIA RES ~ Discharge Summary Admission Diagnosis: Syncope Hospital Course DATE OF ADMISSION: 07/17/25 DATE OF DISCHARGE: 07/17/25 CXR: No acute cardiopulmonary disease. Head CT: No acute intracranial pathology Laboratory Tests Test 07/17/25 14:03 07/17/25 16:05 07/17/25 17:20 07/17/25 19:29 White Blood Count 7.5 X10'3 Red Blood Count 4.15 X10'6 Hemoglobin 11.4 g/dl Hematocrit 35.0 % Mean Corpuscular Volume 84.2 FL Mean Corpuscular Hemoglobin 27.6 PG Mean Corpuscular Hemoglobin Concent 32.8 g/dL Red Cell Distribution Width 16.4 % Platelet Count 298 X10'3 Mean Platelet Volume 7.9 FL Neutrophils (%) (Auto) 58.9 % Lymphocytes (%) (Auto) 32.3 % Monocytes (%) (Auto) 5.7 % Eosinophils (%) (Auto) 2.6 % Basophils (%) (Auto) 0.5 % Neutrophils # (Auto) 4.4 X10'3 Lymphocytes # (Auto) 2.4 X10'3 Monocytes # (Auto) 0.4 X10'3 Eosinophils # (Auto) 0.2 X10'3 Basophils # (Auto) 0.0 X10'3 CBC Comment Sodium Level 140 MMOL/L Potassium Level 3.4 MMOL/L Chloride Level 103 MMOL/L Carbon Dioxide Level 29.3 MMOL/L Anion Gap 8 Blood Urea Nitrogen 11 MG/DL Creatinine 0.80 MG/DL Estimated GFR/1.73 m2 80 ML/MIN BUN/Creatinine Ratio 13.8 Glucose Level 102 MG/DL Calcium Level 8.4 MG/DL Troponin I High Sensitivity 4 ng/L 4 ng/L 4 ng/L Pro-B-Type Natriuretic Peptide 91 PG/ML Albumin 3.6 G/DL Human Chorionic Gonadotropin, Qual Negative Chemistry Comments Troponin I High Sens Percent Delta 0 % 0 % Troponin I Hi Sens Absolute Change 0 ng/L 0 ng/L C-Reactive Protein < 0.05 MG/DL D-Dimer < 0.19 MG/L FEU D-Dimer Comment Discharge Diagnosis\Comment: 1. Syncope, possibly vasovagal 2. Asthma, well controlled, not on acute exacerbation Operations\Procedures: None Consultants: None Complications: None Condition on DC: Stable Discharge Summary: Patient was admitted for syncope evaluation. After admission patient decided to leave AMA. She understands the risk of her decision in left after signing the AMA form *Problems/Diagnosis: (1) Syncope Status: Acute (2) Asthma Status: Chronic Total Time Spent on D/C: Up to 30 Minutes Date of Service: Jul 18, 2025 Billing Provider: JANET CUEVA MD, LUCAS, RES Jul 18, 2025 04:26
[2025-07-18] MEDS ORDERED: docusate sod 100mg capsule PO SCH (08:00)
[2025-07-18] MEDS ORDERED: enoxaparin 40mg/0.4ml syringe SUBCUT SCH (08:00)
[2025-07-18] MEDS ORDERED: K and/or MAG REPLACEMENT MC SCH (08:00)
== END 2025-07-17 22:42 | disposition left against medical advice (07) | DRG 204 ==
LOC: ER 13:29 → ED HOLD 20:15
PROVIDERS: ADMIT Internal Medicine; ATTEND Internal Medicine
DX: R55 Syncope and collapse (principal); J45.909 Unspecified asthma, uncomplicated; Z53.29 Procedure and treatment not carried out because of patient's decision for other reasons; Z90.49 Acquired absence of other specified parts of digestive tract
CPT/HCPCS: 36415; 70450; 71045; 80048; 83880; 84484; 84703; 85025; 85379; 86140; 93005; 99285; G0378